=== PATIENT | female | born 1960 | race American Indian/Alaskan Native ===

== ENCOUNTER 2020-07-17 12:30 | Emergency (ER) | payer OTHER ==
--- NOTE | 2020-07-17 16:09 | Event Note ---
ED Screening Note ED Screening Note: diffuse left arm pain states it woke her out of her sleep with pain states she has tingling in the arm no weakness in the left leg no fall or injury no headache no CP no SOB no speech disturbance no vision disturbance no gait disturbance PMHx HTN, no meds for 3-4 months allergy: sulfa diffuse pain LUE This initial assessment/diagnostic orders/clinical plan/treatment(s) is/are subject to change based on patients health status, clinical progression and re- assessment by fellow clinical providers in the ED. Further treatment and workup at subsequent clinical providers discretion. Patient/guardian urged not to elope from the ED as their condition may be serious if not clinically assessed and m anaged. Initial orders include: XR, labs, US
--- NOTE | 2020-07-17 17:11 | Vascular Lab Report ---
DUPLEX DOPPLER UPPER EXTREMITY VENOUS, LEFT INDICATION / CLINICAL INFORMATION: left arm pain. TECHNIQUE: Duplex doppler imaging was performed through the veins of the left upper extremity using venous compr ession and other maneuvers. COMPARISON: None available. FINDINGS: LEFT INTERNAL JUGULAR VEIN: Negative. LEFT SUBCLAVIAN VEIN: Negative. LEFT AXILLARY VEIN: Negative. LEFT BRACHIAL VEIN: Negative. LEFT FOREARM VEINS: Negative. LEFT BASILIC VEIN (SUPERFICIAL): Negative. ADDITIONAL FINDINGS: None. IMPRESSION: 1. No sonographic evidence for DVT. Signer Name: Michael Calvin MD Signed: 07/17/2020 5:06 PM Workstation Name: [id number]
[2020-07-17 17:20] LABS: Basophils % (Auto) 0.3 % (0.0-1.8); Hematocrit 40.9 % (30.3-42.9); Hemoglobin 13.6 gm/dl (10.1-14.3); Lymphocytes # (Auto) 1.7 K/mm3 (1.2-5.4); Lymphocytes % (Auto) 19.6 % (13.4-35.0); Mean Corpuscular HGB Conc 33 % (30-34); Mean Corpuscular Volume 86 fl (79-97); Monocytes # (Auto) 0.5 K/mm3 (0.0-0.8); Monocytes % (Auto) 5.6 % (0.0-7.3); Platelet Count 290 K/mm3 (140-440); Red Blood Count 4.76 M/mm3 (3.65-5.03); Red Cell Distribution Width 14.4 % (13.2-15.2)
--- NOTE | 2020-07-17 17:31 | XRay Report ---
LEFT SHOULDER 3 VIEWS INDICATION / CLINICAL INFORMATION: left shoulder pain COMPARISON: None available. FINDINGS: BONES / JOINT(S): There is dislocation of the shoulder joint. There is mild degenerative change in th e AC joint SOFT TISSUES: No significant abnormality. ADDITIONAL FINDINGS: None. Signer Name: Otto Fischer MD Signed: 07/17/2020 5:27 PM Workstation Name: [id number]
--- NOTE | 2020-07-17 17:31 | XRay Report ---
LEFT ELBOW 3 VIEWS INDICATION / CLINICAL INFORMATION: left elbow pain. COMPARISON: None available. FINDINGS: No significant skeletal abnormality Signer Name: Paulo Rausch MD FACDoug Signed: 07/17/2020 5:27 PM Workstation Name: [id number]
[2020-07-17 17:37] LABS: Alanine Aminotransferase 17 units/L (7-56); Albumin 3.9 g/dL (3.9-5); Blood Urea Nitrogen 13 mg/dL (7-17); Calcium 9.6 mg/dL (8.4-10.2); Hemolysis Index 21
[2020-07-17 17:43] LABS: BUN/Creatinine Ratio 19
[2020-07-17] MEDS ORDERED: ONDANSETRON 4 MG/2 ML INJ IV ONE (21:14)
[2020-07-17] MEDS ORDERED: propofoL 200 MG/20 ML VIAL IV ONE ×2 (21:14→21:35)
[2020-07-17] MEDS ORDERED: fentaNYL 100 MCG/2 ML INJ IV ONE (21:14)
[2020-07-17] MEDS ORDERED: KETAMINE 500 MG/5 ML VIAL MDV IV ONE ×2 (21:14→21:35)
[2020-07-17] MEDS ORDERED: SODIUM CHLORIDE 0.9% 1000 ML 1,000 ML IV ONE (21:14)
--- NOTE | 2020-07-17 21:16 | Emergency Department Report ---
Upper Extremity - HPI Chief Complaint: Shoulder Injury Stated Complaint: LF SHOULDER PAIN Time Seen by Provider: 07/17/20 21:07 Upper Extremity: Left Shoulder Occurred When: Today Mechanism: Other Severity: severe Symptoms: Yes Pain with Movement, Yes Deformity, Yes Limited Range of Movement, Yes Numbness, No Weakness, No Swelling, No Bruising/Ecchymosis, No Laceration or Abrasion Other History: The patient was evaluated in the emergency department for symptoms described in the history of present illness. He/she was evaluated in the context of the global COVID-19 pandemic, which necessitated consideration that the patient might be at risk for infection with the virus that causes COVID-19. Institutional protocols and algorithms that pertain to the evaluation of patients at risk for COVID-19 are in a state of rapid change based on information released by regulatory bodies including the CDC and federal and [facility] organizations. These policies and algorithms were followed during the patient's care in the emergency department. Please note that these policies, procedures and recommendations changed on a rapid basis. Patient is a 60-year-old female, who is right-hand dominant. She is not known to myself previously. She presents to the ER today with a complaint of nontraumatic left- sided shoulder pain. Her last known well time is last night. She thinks that she "slept on her left shoulder wrong", and woke up with sharp throbbing nontraumatic left-sided shoulder pain, and reports of left bicep/upper extremity numbness. No additional injuries. No additional complaints. Pain is sharp and throbbing, increases with palpation and range of motion. It decreases with rest. No fever, no cough, no loss of taste or smell, no weakness in the bilateral hands, wrist, elbow. ED Review of Systems ROS: Stated complaint: LF SHOULDER PAIN Other details as noted in HPI Comment: All other systems reviewed and negative Musculoskeletal: arthralgia, myalgia Neurological: paresthesias ED Past Medical Hx - Past Medical History Previous Medical History?: Yes Hx Hypertension: Yes Hx HIV: No - Surgical History Past Surgical History?: Yes Additional Surgical History: Left ovary removal - Social History Smoking Status: Never Smoker Substance Use Type: None - Medications Home Medications: Home Medications Medication Instructions Recorded Confirmed Last Taken Type Aspirin 325 mg PO QDAY #30 tablet 11/01/15 Unknown Rx Gabapentin [Neurontin] 300 mg PO QHS #30 cap 11/01/15 Unknown Rx Simvastatin (Nf) [Zocor TAB] 20 mg PO QHS #30 tablet 11/01/15 Unknown Rx Acetaminophen [Non-Aspirin Extra 500 mg PO Q6HR PRN #30 tablet 07/17/20 Unknown Rx Strength] Ibuprofen [Motrin] 600 mg PO Q8H PRN #30 tablet 07/17/20 Unknown Rx Losartan [Cozaar] 50 mg PO QDAY 30 Days tablet 07/17/20 Unknown Rx Morphine Sulfate [Morphine Sulfate 7.5 mg PO Q6HR PRN #10 tablet 07/17/20 Unknown Rx IR] Upper Extremity Exam - Exam General: Vital signs noted. No distress. Alert and acting appropriately. No facial droop. Tongue midline. Extraocular movements intact bilaterally. Facial sensation intact to light touch in V1, V2, V3 distribution bilaterally. 5 and a 5 strength in 4 extremities. Sensation intact to light touch in 4 extremities. 2+ pulses noted in the bilateral upper and lower extremities. There is no palpable cord. negative Homans sign. Muscular compartments are soft. The pelvis is stable. There is an obvious left-sided shoulder deformity. Sensation is intact to light touch in the bilateral deltoid, median, radial, ulnar distribution. Bilateral finger intrinsics/thumb range of motion intact in the bilateral upper extremities. Head and Torso: No HEENT Abnormality, No Neck Tenderness, No Chest/Lungs Abnormality, No Abdominal Tenderness, No Back Tenderness Shoulder Exam: Yes Shoulder Tenderness, Yes Shoulder Deformity, No Clavicle Te nderness, No Normal Range of Motion in Shoulder, No AC Joint Tenderness Arm Exam: No Arm/Humerus Tenderness, No Arm Deformity Elbow: Yes Normal Range of Motion in Elbow, No Elbow Tenderness, No Elbow Deformity Forearm: No Forearm Tenderness, No Forearm Deformity, No Pain with Pronation, No Pain with Supination Wrist: Yes Normal ROM in Wrist, No Wrist Tenderness, No Wrist Deformity, No Snuffbox Tenderness, No Pain with Axial Thumb Compression Hand: Yes Normal ROM in Digit(s), No Hand Tenderness, No Hand Deformity, No Digit Tenderness, No Digit(s) Deformity, No Tendon Dysfunction CMS Exam: Yes Normal Distal Pulses, Yes Normal Capillary Refill, Yes Normal Distal Sensation, No Broken Skin ED Course Vital Signs 07/17/20 15:23 Temperature 98 F Pulse Rate 99 H Respiratory 20 Rate Blood Pressure 209/118 [Right] O2 Sat by Pulse 99 Oximetry - Reevaluation(s) Reevaluation #1: 07/17/20 21:22 Differential diagnosis, including but not limited to: Shoulder dislocation, elevated CK Assessment and plan: 60-year-old female presenting with presumed wake up left- sided shoulder dislocation, alert and oriented, clinically sober, GCS of 15, no neurovascular deficits on my exam, specifically, sensation is intact to light touch and pinch in the bilateral deltoid, median, radial, ulnar distributions. Bilateral wrist range of motion, hand range of motion is intact. Laboratory studies, x-ray, upper extremity DVT studies were ordered prior to my personal evaluation. Elevated CK not consistent with definition of rhabdomyolysis. Muscular com partments are soft. Patient will be given IV fluids. Patient has not eaten since yesterday. She has been n.p.o. for almost 24 hours. She has provided written and verbal consent for moderate sedation and left-sided closed reduction of shoulder dislocation. Elevated blood pressure reviewed and appreciated, likely secondary to pain. Please reference the [employer] clinical policy on hypertension which is asymptomatic. In addition, the patient tells me she has not taken blood pressure medications for 3 months. She has a primary care doctor that she follows with at [facility]. 07/17/20 21:36 07/17/20 22:20 Patient is reassessed. Her symptoms have completely resolved. Sensation remains intact to light touch and pinch in the bilateral upper extremities. She has no pain at this time. She states she does not like the way Norvasc makes her feel, "because it makes my joints swell." She states she is "okay" with losartan. She states she is reliable to follow-up with her primary care doctor/orthopedist. I have discussed with the patient the need to closely follow-up, avoid heavy lifting, and remain compliant with antihypertensive therapy. Her examination at this time is not consistent of rhabdomyolysis, or compartment syndrome Her sister is coming by to pick her up, and she states that she is ready for discharge 07/17/20 22:21 - Moderate Sedation Indications: fracture/dislocation redu ASA Class: II Mallampati Airway Score: 2 Preparation: vehicle monitor technician applied, pulse oximeter, capnometry used, supplemental O2 applied, suction/airway equipment at bedside, IV secured Ketamine: IV Ketamine Dose: 50 IV Propofol Dose (mgs): 50 Complications: none Interventions: oxygen applied Patient Tolerated Procedure: well - Orthopedic Joint Reduction Joint #1 Consent Obtained: verbal consent, written consent, emergent situation Time Out Performed: Yes Side: left Joint Reduction Location: shoulder Analgesia: moderate sedation Technique Used: direct manipulation Post-Reduction Neuro Exam: intact Post-Reduction Vascular Exam: intact Post Reduction X-Ray Obtained: Yes Post Reduction X-Ray Results: reduced Splint Applied: Yes Patient Tolerated Procedure: well - Orthopedic Splinting/Casting Injury #1 Side: left Upper Extremity Injury Location: shoulder Upper Extremity Immobilizer: sling/shoulder immobilize ED Medical Decision Making - Lab Data Result diagrams: 07/17/20 16:49 07/17/20 16:49 Vital Signs 07/17/20 15:23 Temperature 98 F Pulse Rate 99 H Respiratory 20 Rate Blood Pressure 209/118 [Right] O2 Sat by Pulse 99 Oximetry Lab Results 07/17/20 07/17/20 Range/Units 16:49 16:49 WBC 8.8 (4.5-11.0) K/mm3 RBC 4.76 (3.65-5.03) M/mm3 Hgb 13.6 (10.1-14.3) gm/dl Hct 40.9 (30.3-42.9) % MCV 86 (79-97) fl MCH 29 (28-32) pg MCHC 33 (30-34) % RDW 14.4 (13.2-15.2) % Plt Count 290 (140-440) K/mm3 Lymph % (Auto) 19.6 (13.4-35.0) % Upson % (Auto) 5.6 (0.0-7.3) % Eos % (Auto) 0.0 (0.0-4.3) % Baso % (Auto) 0.3 (0.0-1.8) % Lymph # (Auto) 1.7 (1.2-5.4) K/mm3 Upson # (Auto) 0.5 (0.0-0.8) K/mm3 Eos # (Auto) 0.0 (0.0-0.4) K/mm3 Baso # (Auto) 0.0 (0.0-0.1) K/mm3 Seg Neutrophils % 74.5 H (40.0-70.0) % Seg Neutrophils # 6.5 (1.8-7.7) K/mm3 Sodium 134 L (137-145) mmol/L Potassium 4.0 (3.6-5.0) mmol/L Chloride 101.6 (98-107) mmol/L Carbon Dioxide 22 (22-30) mmol/L Anion Gap 14 mmol/L BUN 13 (7-17) mg/dL Creatinine 0.7 (0.6-1.2) mg/dL Estimated GFR > 60 ml/min BUN/Creatinine Ratio 19 % Glucose 102 H (65-100) mg/dL Calcium 9.6 (8.4-10.2) mg/dL Total Bilirubin 0.30 (0.1-1.2) mg/dL AST 27 (5-40) units/L ALT 17 (7-56) units/L Alkaline Phosphatase 118 (35-129) units/L Total Creatine Kinase 1093 H (30-135) units/L C-Reactive Protein 1.60 H (0.00-1.30) mg/dL Total Protein 8.3 H (6.3-8.2) g/dL Albumin 3.9 (3.9-5) g/dL Albumin/Globulin Ratio 0.9 % - Radiology Data Radiology results: report reviewed, image reviewed LEFT SHOULDER 3 VIEWS INDICATION / CLINICAL INFORMATION: left shoulder pain COMPARISON: None available. FINDINGS: BONES / JOINT(S): There is dislocation of the shoulder joint. There is mild degenerative change in the AC joint SOFT TISSUES: No significant abnormality. ADDITIONAL FINDINGS: None. Signer Name: Otto Fischer MD Signed: 07/17/2020 4:27 PM Workstation Name: [id number] LEFT ELBOW 3 VIEWS INDICATION / CLINICAL INFORMATION: left elbow pain. COMPARISON: None available. FINDINGS: No significant skeletal abnormality Signer Name: Paulo Rausch MD FACR Signed: 07/17/2020 4:27 PM Workstation Name: [id number] DUPLEX DOPPLER UPPER EXTREMITY VENOUS, LEFT INDICATION / CLINICAL INFORMATION: left arm pain. TECHNIQUE: Duplex doppler imaging was performed through the veins of the left upper extremity using venous compression and other maneuvers. COMPARISON: None available. FINDINGS: LEFT INTERNAL JUGULAR VEIN: Negative. LEFT SUBCLAVIAN VEIN: Negative. LEFT AXILLARY VEIN: Negative. LEFT BRACHIAL VEIN: Negative. LEFT FOREARM VEINS: Negative. LEFT BASILIC VEIN (SUPERFICIAL): Negative. ADDITIONAL FINDINGS: None. IMPRESSION: 1. No sonographic evidence for DVT. Signer Name: Michael Calvin MD Signed: 07/17/2020 4:06 PM Workstation Name: [id number] LEFT SHOULDER 2 VIEW(S) INDICATION / CLINICAL INFORMATION: s/p reduction COMPARISON: shoulder radiograph 07/17/2020 FINDINGS: BONES / JOINT(S): Anatomical alignment of the shoulder when compared to the prior examination. No definite acute displaced fracture. Occult nondisplaced fracture could be present and consider further evaluation as warranted. Glenohumeral and AC joint degenerative arthrosis. SOFT TISSUES: No significant abnormality. ADDITIONAL FINDINGS: None. Signer Name: Casimiro Iqbal MD Signed: 07/17/2020 9:02 PM Workstation Name: [id number] Critical care attestation.: If time is entered above; I have spent that time in minutes in the direct care of this critically ill patient, excluding procedure time. ED Disposition Clinical Impression: Elevated blood pressure reading, Elevated CK, Medication refill Shoulder dislocation Qualifiers: Encounter type: initial encounter Laterality: left Qualified Code(s): S43.005A - Unspecified dislocation of left shoulder joint, initial encounter Disposition: DC-01 TO HOME OR SELFCARE Is pt being admited?: No Does the pt Need Aspirin: No Condition: Stable Instructions: Shoulder Dislocation, Moderate Conscious Sedation, Adult, Care After Additional Instructions: Recommend that the patient keep the left shoulder sling in place. Please follow-up with an orthopedist within the next week. Recommend that patient rest, avoid heavy lifting, and avoid strenuous physical activities with the left upper extremity. Take the pain medications as prescribed and directed. Do not consume with alcohol, or sedating substances. If taking the morphine medication for pain, do not drive, operate motor vehicles, or make important decisions. Please drink 6 cups of water per day indefinitely. Please follow-up with a primary care doctor within the next 5 days for repeat checkup and evaluation. In addition, we recommend follow-up within the next 5 days for repeat laboratory testing, to reassess creatinine kinase level. Please take blood pressure medication as directed. Noncompliance with blood pressure medication may result in uncontrolled hypertension, which may be a risk factor for stroke, disability, paralysis, loss of quality of life. Please return to the emergency room right away with new pain, worsening pain, migration of pain, projectile vomiting, change in mental status, confusion, inability to tolerate liquid feeds, new, worsened or different symptoms not present on the initial emergency room evaluation. Prescriptions: amLODIPine 10 mg PO QDAY #30 tablet Losartan [Cozaar] 50 mg PO QDAY 30 Days tablet Morphine Sulfate [Morphine Sulfate IR] 7.5 mg PO Q6HR PRN #10 tablet PRN Reason: Pain , Severe (7-10) Ibuprofen [Motrin] 600 mg PO Q8H PRN #30 tablet PRN Reason: Pain Acetaminophen [Non-Aspirin Extra Strength] 500 mg PO Q6HR PRN #30 tablet PRN Reason: Pain , Severe (7-10) Referrals: BLAZE HESS MD [Staff Physician] - 3-5 Days CASIMIRO MORIN MD [Staff Physician] - 3-5 Days Forms: Work/School Release Form(ED)
[2020-07-17 21:23] VITALS: BP 222/98
--- NOTE | 2020-07-17 22:07 | XRay Report ---
LEFT SHOULDER 2 VIEW(S) INDICATION / CLINICAL INFORMATION: s/p reduction COMPARISON: shoulder radiograph 07/17/2020 FINDINGS: BONES / JOINT(S): Anatomical alignment of the shoulder when compared to the prior examination. No def inite acute displaced fracture. Occult nondisplaced fracture could be present and consider further ev aluation as warranted. Glenohumeral and AC joint degenerative arthrosis. SOFT TISSUES: No significant abnormality. ADDITIONAL FINDINGS: None. Signer Name: Manuel Iqbal MD Signed: 07/17/2020 10:02 PM Workstation Name: [id number]
== END 2020-07-17 22:30 | disposition home or self-care (01) ==
LOC: ED 12:30
DX: S43.005A Unspecified dislocation of left shoulder joint, initial encounter (principal); I10 Essential (primary) hypertension; Z98.890 Other specified postprocedural states; Z79.899 Other long term (current) drug therapy; Z88.2 Allergy status to sulfonamides; X58.XXXA Exposure to other specified factors, initial encounter; Y93.89 Activity, other specified; Y92.89 Other specified places as the place of occurrence of the external cause; Y99.8 Other external cause status
CPT/HCPCS: 23655; 36415; 73030; 73080; 80053; 82550; 85025; 86140; 93971; 94760; 96361; 96374; 96375; 99285; J2405; J2704; J3010; J7030